=== PATIENT | male | born 1965 | race Caucasian/White ===

== ENCOUNTER 2020-12-12 16:39 | Emergency (ER) | payer MEDICARE ==
[~2020-12-12] VITALS: Ht 177.8 cm; Wt 100.0 kg
[~2020-12-12 16:39] MED LIST: HYDR-4353 PO; ONDA4TAB6 PO
[2020-12-12 21:08] LABS: BASOPHILS % (AUTO) 0.5 % (0-1); EOSINOPHILS % (AUTO) 0 % (0-6); HEMATOCRIT 43.6 % (42.0-52.0); HEMOGLOBIN 13.6 g/dl (14.0-17.9); LYMPHOCYTES # (AUTO) 1.6 X10'3 (1.1-4.8); LYMPHOCYTES % (AUTO) 25.8 % (21-51); MEAN CORPUSCULAR HGB CONC 31.2 g/dL (33.0-36.5); MEAN CORPUSCULAR VOLUME 67.4 FL (78-98); MEAN PLATELET VOLUME 8.8 FL (7.4-10.4); MONOCYTES # (AUTO) 0.9 X10'3 (0-0.9); MONOCYTES % (AUTO) 15.3 % (2-12); NEUTROPHILS # (AUTO) 3.6 X10'3 (1.8-7.7); NEUTROPHILS % (AUTO) 58.4 % (42-75); PLATELET COUNT 293 X10'3 (140-440); RED BLOOD COUNT 6.47 X10'6 (4.70-6.10); WHITE BLOOD COUNT 6.2 X10'3 (4.5-11.0)
[2020-12-12 21:18] LABS: ALANINE AMINOTRANSFERASE 36 U/L (12-78); ALBUMIN 2.7 G/DL (3.4-5.0); ALBUMIN/GLOBULIN RATIO 0.5 (1.1-1.5); ALKALINE PHOSPHATASE 64 IU/L (46-116); ANION GAP 15 (8-16); ASPARTATE AMINO TRANSFERASE 121 U/L (10-37); BILIRUBIN,TOTAL 0.2 MG/DL (0.1-1.0); BLOOD UREA NITROGEN 39 MG/DL (7-18); BUN/CREATININE RATIO 15.3 (5.4-32.0); CALCIUM 8.7 MG/DL (8.5-10.1); CHLORIDE 101 MMOL/L (99-107); CREATININE 2.55 MG/DL (0.60-1.10); GLUCOSE 157 MG/DL (70-104); POTASSIUM 3.9 MMOL/L (3.5-5.1); SODIUM 139 MMOL/L (135-145); TOTAL CARBON DIOXIDE 22.9 MMOL/L (24-32); TOTAL PROTEIN 8.6 G/DL (6.4-8.2); eGFR 26 ML/MIN
[2020-12-12 21:23] LABS: TROPONIN I < 0.04 NG/ML (0.0-0.05)
[2020-12-12] MEDS ORDERED: normal saline 1000ml 1,000 ML IV ONE ×2 (21:30→23:00)
[2020-12-12] MEDS ORDERED: FLO0.4C PO (22:36)
[2020-12-13 00:47] LABS: URINE AMPHETAMINE SCREEN POSITIVE (Neg); URINE BARBITUATE SCREEN NEGATIVE (Neg); URINE BENZODIAZEPINES SCREEN POSITIVE (Neg); URINE CANNABINOID SCREEN NEGATIVE (Neg); URINE COCAINE SCREEN NEGATIVE (Neg); URINE METHADONE SCREEN POSITIVE (Neg); URINE OPIATE SCREEN POSITIVE (Neg); URINE PHENCYCLIDINE SCREEN NEGATIVE (Neg)
[2020-12-13 00:48] LABS: CLARITY,URINE SLIGHTLY CLOUDY (Clear); COLOR,URINE YELLOW (Yellow); UA COLLECTION TYPE CLN CATCH MIDSTREAM
[2020-12-13 00:49] LABS: GLUCOSE, URINE NEGATIVE (Neg); KETONES,URINE NEGATIVE (Neg); LEUKOCYTE ESTERASE ,URINE NEGATIVE (Neg); NITRITES, URINE NEGATIVE (Neg); OCCULT BLOOD,URINE SMALL (Neg); PROTEIN,URINE 30 mg/dl (Neg); UROBILINOGEN,URINE 0.2 E.U/dL (0.2-1.0)
[2020-12-13 00:55] LABS: CELLULAR CAST 0-4 /LPF (NEGATIVE); SQUAMOUS EPITHELIAL CELL,UR FEW /LPF (FEW)
[2020-12-13 00:56] LABS: BACTERIA,URINE 1+ /HPF (Neg)
[2020-12-13 01:02] LABS: STARCH,URINE FEW /HPF (NEGATIVE)
--- NOTE | 2020-12-13 01:11 | NUR ---
PT IS A&O X 4, GAIT STEADY WITH NO DIZZINESS NOTED WHEN AMBULATING TO BEDSIDE COMMODE. NO ALOC, BLOOD PRESSURE IS WNL. AFEBRILE NO PEDROZA OR CP AT THIS TIME, WILL CONTINUE TO MONITOR
[2020-12-13] MEDS ORDERED: ondansetron/PF 4mg/2ml inj IV ONE (01:50)
[2020-12-13 02:02] LABS: ALBUMIN 2.4 G/DL (3.4-5.0); ANION GAP 11 (8-16); BLOOD UREA NITROGEN 37 MG/DL (7-18); BUN/CREATININE RATIO 19.6 (5.4-32.0); CALCIUM 7.8 MG/DL (8.5-10.1); CHLORIDE 107 MMOL/L (99-107); CREATININE 1.89 MG/DL (0.60-1.10); GLUCOSE 111 MG/DL (70-104); POTASSIUM 3.4 MMOL/L (3.5-5.1); SODIUM 142 MMOL/L (135-145); TOTAL CARBON DIOXIDE 24.4 MMOL/L (24-32); eGFR 37 ML/MIN
[2020-12-13] MEDS ORDERED: normal saline 1000ml 1,000 ML IV ONE (03:40)
[2020-12-13 05:09] VITALS: BP 111/62
== END 2020-12-13 05:10 | disposition home or self-care (01) ==
LOC: ER 16:40
DX: S09.90XA Unspecified injury of head, initial encounter (principal); E86.0 Dehydration; I95.9 Hypotension, unspecified; F15.10 Other stimulant abuse, uncomplicated; R53.1 Weakness; R10.31 Right lower quadrant pain; I10 Essential (primary) hypertension; R51.9 Headache, unspecified; R42 Dizziness and giddiness; I25.2 Old myocardial infarction; I25.10 Atherosclerotic heart disease of native coronary artery without angina pectoris; J45.909 Unspecified asthma, uncomplicated; G89.29 Other chronic pain; F11.90 Opioid use, unspecified, uncomplicated; Z87.442 Personal history of urinary calculi; Z90.89 Acquired absence of other organs; Z98.890 Other specified postprocedural states; Z88.8 Allergy status to other drugs, medicaments and biological substances; Z79.899 Other long term (current) drug therapy; X58.XXXA Exposure to other specified factors, initial encounter; Y93.89 Activity, other specified; Y92.89 Other specified places as the place of occurrence of the external cause; Y99.8 Other external cause status
CPT/HCPCS: 36415; 71045; 74176; 80048; 80053; 80305; 81001; 83880; 84484; 85025; 87088; 93005; 96374; 99285; J2405; J7030

== ENCOUNTER 2024-05-07 18:02 | Emergency (ER) | payer BC ==
[~2024-05-07] VITALS: Ht 177.8 cm; Wt 93.2 kg
[~2024-05-07 18:02] MED LIST changes: +FLO0.4C PO
[2024-05-07 18:30] VITALS: BP 147/98; PULSE 95; TEMP 98.4; O2SAT 98
[2024-05-07] MEDS: ondansetron 4mg rapidly disintigrating tab PO ONE (19:24)
[2024-05-07] MEDS: CefTRIAXone 1000mg IM Kit (w/lidocaine diluent) IM ONE (19:24)
[2024-05-07] MEDS: TETanus/Pertussis (Acell)/Diphther VAC/PF (Tdap-Adult) 0.5ml syringe IMVAC ONE (19:25)
[2024-05-07] MEDS ORDERED: LEVO-65 PO (19:26)
[2024-05-07 19:48] VITALS: RESP 16
[2024-05-07] MEDS: HYDROcodone/acetaminophen 5mg/325mg tablet PO ONE (19:48)
[2024-05-07] MEDS ORDERED: HYDR-3965 PO (19:50)
== END 2024-05-07 20:00 | disposition home or self-care (01) ==
LOC: ER 18:03
DX: S91.331A Puncture wound without foreign body, right foot, initial encounter (principal); I10 Essential (primary) hypertension; I25.10 Atherosclerotic heart disease of native coronary artery without angina pectoris; J45.909 Unspecified asthma, uncomplicated; Z91.041 Radiographic dye allergy status; Z88.8 Allergy status to other drugs, medicaments and biological substances; Z90.49 Acquired absence of other specified parts of digestive tract; W22.8XXA Striking against or struck by other objects, initial encounter; Y93.89 Activity, other specified; Y92.89 Other specified places as the place of occurrence of the external cause; Y99.8 Other external cause status
CPT/HCPCS: 73630; 90471; 90715; 96372; 99284; J0696; A6449

== ENCOUNTER 2024-09-29 03:12 | Emergency (ER) | payer BC, OTHER ==
[~2024-09-29] VITALS: Ht 177.8 cm; Wt 93.2 kg
[~2024-09-29 03:12] MED LIST changes: -FLO0.4C PO; +TAMS-55 PO
[2024-09-29] MEDS: normal saline 1000ML IV soln IVB ONE (03:30)
--- NOTE | 2024-09-29 03:31 | Physician Documentation ---
History of Present Illness Chief Complaint: Abdominal Pain Stated Complaint: ABDOMINAL PAIN Time Seen by MD: 03:23 Primary Medical Doctor: [facility] HPI This is a 59-year-old gentleman with a known history of prior small-bowel obstructions comes in for evaluation of constipation and abdominal pain for the last five days. Has a bowel movement yesterday which made him feel better, however the pain has a returned again. No flatus. No particular palliating or aggravating factors. The pain is moderate to severe in its intensity. Denies chest pain or difficulty breathing. The patient is a rather poor historian. Medication Reconciliation Allergies: Coded Allergies: iodine (Verified Allergy, Intermediate, SWELLING, 09/29/24) Scheduled Ondansetron Hcl (Zofran), 1 TAB PO Q6H Scheduled PRN Hydrocodone Bit/Acetaminophen ([place] 10-325 Tablet), 1 TAB PO Q6H PRN for severe pain Miscellaneous Medications Tamsulosin Hcl* (Flomax*), 0.4 MG PO, (Reported) Past Medical History Past Medical History: Angina, Coronary Artery Disease, Hypertension, Myocardial Infarction, Asthma, Bowel Obstruction, GI Bleed, Kidney Stones, Chronic Pain Past Surgical History: abdominal surgery, appendectomy, colectomy, orthopedic surgeries, other Other Past Family History: 5 brothers with CAD Alcohol Use: None Drug Use: methamphetamine, heroin Lives with: Mother Occupation: disabled Review of Systems ROS 10 point review of systems was performed and unless noted above in HPI is negative for acute process/complaint. Physical Exam Vital Signs: Temperature: 100.3, Source: Oral, Heart Rate: 128, Respiratory Rate: 16, BP: 122/80, Pulse Oximetry: 98, Weight: 93.200 Physical Exam GENERAL: Awake, alert, oriented, GCS 15, moderate pain related distress, non-tox ic appearing, answers questions, follows commands appropriately. Examined in bed 3. HEENT: Atraumatic, normocephalic, pupils equal, extraocular muscles intact, sclerae anicteric, mucus membranes moist, oropharynx is clear, no stridor. NECK: supple, full active range of motion, trachea midline, no thyromegaly, no lymphadenopathy, no JVD. CARDIOVASCULAR: Tachycardic and regular rate/rhythm, no murmurs/gallops/rubs, Pulses are 2+ in all extremities and symmetric. Capillary refill less than 2 seconds. PULMONARY: Nonlabored, good air movement ,no respiratory distress, speaking in full sentences, clear to auscultation bilaterally, no wheezing, no ronchi, no rales, no accessory muscle use. GASTROINTESTINAL: Soft, diffusely-tender, non-distended, normal active bowel sounds, no organomegaly, no pulsatile masses, no CVA tenderness. NEUROLOGIC: Lucid with normal mental status. Normal facial symmetry. Moves all extremities symmetrically and with purpose. No truncal ataxia. Speech is fluid without evidence of dysarthria or aphasia, no focal deficits appreciated. MUSCULOSKELETAL: There is full range of motion of all extremities. There is no joint pain or joint swelling or joint erythema. There is no muscle pain or tenderness or swelling. EXTREMITIES: warm, well-perfused, no cyanosis, no clubbing, no edema, no acute deformities. Skin: warm, dry, no rashes or lesions, no jaundice, no petechiae orpurpura. No ecchymosis. PSYCHIATRIC: Normal affect, normal insight, normal concentration. Focused exam: No guarding or rebound Progress Results/Orders Results/Orders Orders - MARTÍNEZ CASTRO DO Urinalysis, Cult If Indicated (09/29/24 03:23) Cbc/Diff (09/29/24 03:23) BMP (09/29/24 03:23) Lipase (09/29/24 03:23) CMP (09/29/24 03:23) Electrocardiogram (09/29/24 ) Vital Signs 09/29/24 03:20 Temp 100.3 Pulse 128 Resp 16 B/P (MAP) 122/80 Pulse Ox 98 Medical Decision Making Findings Facility Status: ED Holds, [facility] process The plan was discussed with the patient, who demonstrates clear understanding of the plan and is in agreement with the plan unless otherwise noted in the chart. All questions have been answered, all concerns were addressed unless otherwise documented. I was available throughout their ED stay for frequent reassessment and questions. Differential Diagnoses (considered and possible or likely): [Differential diagnosis considered includes acute appendicitis, acute cholecystitis, pancreatitis, gastritis, PUD, diverticulitis, mesenteric ischemia, abdominal aortic aneurysm, bowel obstruction, enteritis, colitis, fecal impaction, volvulus, IBS, inflammatory bowel disease, specific food intolerance, peritonitis, perforated viscous, malignancy, UTI, abscess, and abdominal pain NOS. History, physical exam, and workup exclude many of the more serious causes listed above. ] ??Differential Diagnoses (considered and unlikely, not requiring evaluation currently): [Aortic/great vessels dissection was considered but it is unlikely based on absence of ripping, tearing, migratory chest pain, absence of syncope or focal neurologic deficits, physical examination indicating equal and symmetric pulses.] MDM Data Please see [facility] for the following: Independent Historians and external Records Review. Historian: [Patient] Independent Historians: ?[Record review, AMS] Medication Management: [Reviewed medication list] Social History and determinants: [Reviewed] Please see the body of the note for the following: Any independent interpretations of ECG, imaging studies. All vitals signs/haemodynamics, ordered tests were independently reviewed and interpreted by myself. Nursing triage complaint and vitals reviewed, additional nursing notes were reviewed as available and I agree unless otherwise noted or documented in contradiction in the chart Vital Signs: Independently reviewed Labs: Independently interpreted Imaging: Independently interpreted Old Medical Records: Independently reviewed, see [facility] for relevant summary and information Pulse Oximetry: [98%] interpreted as [normal on room air] by me [Unloading Checker: Tachycardic Rate, Regular rhythm, no ectopy, sinus tachycardia. reviewed and interpreted by me] Additionally notably showing: [Hemodynamics reviewed. The patient is tachycardic, improved with fluids somewhat, no evidence of hypotension, borderline febrile. No evidence of respiratory distress. Laboratory studies notable for mild leukocytosis 12.2 with 88% neutrophilic predominance. Chemistry notable for slightly elevated glucose. Otherwise normal renal function, minimal hyponatremia noted. UA is nondiagnostic for UTI. CT was obtained. Unfortunately not able to perform CT with contrast because the patient is allergic. It shows a mild thickening of the rectum with a fat stranding concerning for proctitis. Fluid-filled small bowel loops without obstruction. Nonobstructing punctate renal calculi noted.] Tests considered but not ordered include: [Not applicable] Social Determinants of Health Impact: Patient was evaluated in [facility], [facility] [place] to healthcare due to below par ratio of patient to medical providers. [] Comorbid Conditions Impacting Present Evaluation and Care/Treatment: [History of small-bowel obstruction] Management Discussions with other Healthcare Providers: [None] Treatment and Disposition Medication Management (Given or considered): [Fluid bolus, pain management]. See EMR for details Consideration for Hospitalization/Escalation/Deescalation of Care: Admission for observation has been considered, [however the patient is able to tolerate p.o., their symptoms are controlled, they are able to rely on oral medications, and their chief complaint/diagnosis can be managed on outpatient basis.] ?ED Course:?[Gradual clinical improvement throughout her stay in the emergency department. No explanation for his abdominal pain other than constipation versus proctitis.] ?Shared decision making:?[Patient is hemodynamically stable for discharge home with follow with their primary care provider. [ ] Specific and cautious return precautions provided and discussed with full understanding. Any incidental findings were also discussed and follow up recommendations given. [] All questions answered. Patient/family were able to verbalize back return precautions. Patient/family agree to plan. Copies of imaging and laboratory studies were provided.] Code status:?FULL Please see the full Electronic Medical Record for full details of nursing documentation, medications list, other records of complete past medical history and conditions, vital signs, laboratory studies, and any radiologic study interpretations by radiologists. Portions of this note were completed using [employer] dictation software and as a result there may exist minor errors in spelling. I have reviewed elements of past family and social history and agree as included in note. Departure Disposition: 01 HOME / SELF CARE / HOMELESS Impression: Primary Impression: Abdominal pain Condition: Improved Discharge Instructions: Abdominal Pain (Nonspecific) Referrals: NO PRIMARY CARE PROVIDER (PCP) Education Educated: Patient Educated regarding: diagnosis, treatment, prognosis, need for follow up Signature Scribe Signature: No scribe Attestation: This note accurately reflects clinical decisions, work performed by myself, DO MATTHEW Prabhakar NICHOLAS M DO Sep 29, 2024 03:31
--- NOTE | 2024-09-29 03:35 | ELECTROCARDIOGRAPH REPORT ---
[facility] Test Date: 2024-09-29 Test Time: 03:33:35 Pat Name: ESCOBAR TURNER Department: EMERGENCY ROOM Room: Gender: M Financial Planning Analyst: SB : 1965 Requested By: MARTÍNEZ CASTRO Order Number: [id number] Reading MD: Dr. Blaine Marlow Measurements Intervals [place] Rate: 122 P: 81 CA: 56 QRS: 66 QRSD: 86 T: 57 QT: 311 QTc: 443 Interpretive Statements Sinus tachycardia Borderline repolarization abnormality Baseline wander in lead(s) V3 Electronically Signed On 09-29-2024 19:29:[address] Blaine Marlow Please click the below link to view image of tracing.
--- NOTE | 2024-09-29 04:31 | RADIOLOGY REPORT ---
Exam: CT CT ABDOMEN PELVIS History: Severe abdominal pain, history of bowel obstructions Comparison Study: CT ABDOMEN PELVIS on DOS: 12/12/20 Technique: Multidetector spiral CT of the abdomen and pelvis was performed from lung bases to pubic s ymphysis. Imaging was performed without intravenous contrast. Coronal and sagittal multiplanar reform ats were obtained from the axial data set by the technologist. Radiation Dose : 1. Abdomen/Pelvis: CTDIvol 22.8 mGy, DLP 1180.8 mGy*cm. Findings: Evaluation of vasculature and solid organs is limited due to lack of intravenous contrast use. Lung Bases: Lung bases are clear. Visualized portions of the heart and pericardium are unremarkable. Liver: The liver is normal in size. No focal lesions. Diffusely hypoattenuating liver parenchyma con sistent with hepatic steatosis. Gallbladder and Biliary Tree: The gallbladder is surgically absent. No intrahepatic or extrahepatic b iliary ductal dilatation. Spleen: Enlarged measuring 14.5 cm. Pancreas: The pancreas is grossly unremarkable. Adrenal Glands: Unremarkable Kidneys: Bilateral punctate nonobstructive intrarenal calculi. No hydronephrosis. GI tract: The stomach is grossly normal in appearance. There are a few Fluid-filled small bowel loops which are nonspecific. There is wall thickening in the rectum with mild fat stranding. The appendix is not visualized, however no inflammatory changes in the right lower quadrant to suggest acute appe ndicitis. Peritoneum/mesentery/retroperitoneum. No evidence of free intraperitoneal air. No ascites. No evidenc e of suspicious lymphadenopathy. Abdominal Wall: Fat containing right inguinal hernia. Vasculature: The visualized abdominal aorta is normal in size and caliber. Evaluation of abdominal a nd pelvic vessels is limited due to lack of intravenous contrast. Urinary Bladder: Grossly unremarkable for degree of distention. Pelvic Organs: Unremarkable Musculoskeletal: No aggressive focal bony lesions, acute fractures or dislocation. Multilevel lumbar spondylosis. IMPRESSION: 1. Mild wall thickening of the rectum with fat stranding may reflect acute proctitis. Nonspecific flu id-filled small bowel loops without bowel obstruction. 2. Punctate bilateral nonobstructive intrarenal calculi.
[2024-09-29] MEDS: ondansetron/PF 4mg/2ml inj IV ONE (04:50)
[2024-09-29] MEDS: morphine 4 MG/ML inj SYRINge IV ONE (04:50)
[2024-09-29 05:00] LABS: MEAN PLATELET VOLUME 7.8 FL (7.4-10.4); RED CELL DISTRIBUTION WIDTH 16.9 % (11.5-14.5)
[2024-09-29 05:11] LABS: LEUKOCYTE ESTERASE ,URINE NEGATIVE (Neg); NITRITES, URINE NEGATIVE (Neg); OCCULT BLOOD,URINE TRACE-INTACT (Neg)
[2024-09-29 05:12] LABS: UA COLLECTION TYPE NON-SPECIFIED
[2024-09-29 05:16] LABS: CREATININE 1.09 MG/DL (0.60-1.10); ETHANOL < 10 MG/DL (<10); TOTAL CARBON DIOXIDE 25.4 MMOL/L (24-32); eCRCL 74 ML/MIN; eGFR 69 ML/MIN
[2024-09-29 05:17] LABS: SQUAMOUS EPITHELIAL CELL,UR FEW /LPF (FEW)
[2024-09-29 05:23] LABS: PLATELET ESTIMATE NORMAL
[2024-09-29 05:33] LABS: URINE AMPHETAMINE SCREEN POSITIVE (Neg); URINE BARBITUATE SCREEN NEGATIVE (Neg); URINE BENZODIAZEPINES SCREEN NEGATIVE (Neg); URINE CANNABINOID SCREEN NEGATIVE (Neg); URINE COCAINE SCREEN NEGATIVE (Neg); URINE METHADONE SCREEN NEGATIVE (Neg); URINE OPIATE SCREEN POSITIVE (Neg); URINE PHENCYCLIDINE SCREEN NEGATIVE (Neg)
[2024-09-29] MEDS: normal saline 1000ml 1,000 ML IV ONE (05:44)
[2024-09-29] MEDS: ketorolac trometh 30MG/ML vial 30 MG/ML VIAL IV ONE (06:01)
[2024-09-29 06:03] VITALS: PULSE 102; TEMP 98.4
[2024-09-29 06:49] VITALS: BP 132/80; RESP 20; O2SAT 96
== END 2024-09-29 06:51 | disposition home or self-care (01) ==
LOC: ER 03:12
DX: R10.84 Generalized abdominal pain (principal); I10 Essential (primary) hypertension; I25.10 Atherosclerotic heart disease of native coronary artery without angina pectoris; I25.2 Old myocardial infarction; J45.909 Unspecified asthma, uncomplicated; F15.90 Other stimulant use, unspecified, uncomplicated; F11.90 Opioid use, unspecified, uncomplicated; Z90.49 Acquired absence of other specified parts of digestive tract; Z88.8 Allergy status to other drugs, medicaments and biological substances; Z79.899 Other long term (current) drug therapy; Z87.442 Personal history of urinary calculi
CPT/HCPCS: 36415; 74176; 80053; 80305; 80320; 81001; 83605; 83690; 83735; 84484; 85008; 85025; 93005; 96361; 96374; 96375; 99285; J1885; J2270; J2405; J7030